=== PATIENT | male | born 1965 | race Caucasian/White ===

== ENCOUNTER 2021-01-26 21:26 | Inpatient (IN) | payer MEDICAID, MEDICARE, OTHER ==
[~2021-01-26] VITALS: Ht 185.4 cm; Wt 105.5 kg
--- NOTE | 2021-01-26 21:35 | NUR ---
PT BIBA FROM [facility] D[facility] TO A GL[facility], PT HAS AN OBVIOUS DEFORMITY TO LEFT CLAVICLE AREA. ETOH ON BOARD. UNKNOWN LOC, UNKNOWN BLOOD THINNERS, APPEARS TO HAVE HAD AN IMPACT TO FACE DUE TO EPISTAXIS. VOMITTING MONO BLOOD INTO MASK, APPEARS TO BE SMALL AMOUNTS AT THIS TIME. ALSO CO OF INTERMITTENT CP, PULSES 2+. PT REPORTS DRINKING SIGNIFICANT AMOUNTS OF ETOH AND REPORTS THAT HE DRINKS DAILY. PT NOT THE GREATEST HISTORIAN REGARDING CURRENT MEDICATIONS AND MEDICAL HISTORY. PT TO CT AT THIS TIME VIA [facility]. BED IN LOWEST, RAILS ENGAGED, CALL LIGHT ON LAP, WCTM.
[2021-01-26] MEDS ORDERED: ONDANSETRON ODT 4 MG PO ONE (22:00)
[2021-01-26] MEDS ORDERED: ONDANSETRON ODT 4 MG ONE (22:12)
[2021-01-26 22:29] LABS: BASOPHILS % (AUTO) 1 % (0-1); EOSINOPHILS % (AUTO) 1 % (1-7); LYMPHOCYTES % (AUTO) 23 % (22-44); MEAN CORPUSCULAR HEMOGLOBIN 31.5 pg (27.5-34.5); MEAN CORPUSCULAR HGB CONC 34.1 g/dL (33.2-36.2); MEAN PLATELET VOLUME 9.3 fL (7.4-10.4); MONOCYTES % (AUTO) 7 % (2-9); NEUTROPHILS % (AUTO) 69 % (42-75); PLATELET COUNT 185 x10^3/uL (130-400); RED BLOOD COUNT 3.65 x10^6/uL (4.38-5.82); RED CELL DISTRIBUTION WIDTH 13.4 % (9.4-14.8)
--- NOTE | 2021-01-26 22:33 | NUR ---
MARK BELL (BROTHER): [phone]
[2021-01-26 22:39] LABS: ANION GAP 11 mmol/L (5-15); CHLORIDE 89 mmol/L (98-107); CREATININE 1.24 mg/dL (0.7-1.3)
[2021-01-26] MEDS ORDERED: PROPOFOL 10 MG/ML, 20ML ONE (23:18)
[2021-01-26] MEDS ORDERED: KETAMINE 10 MG/ML, 20ML ONE (23:19)
--- NOTE | 2021-01-26 23:24 | NUR ---
PT NAD, NO CHANGES IN CONDITION, MOVED TO LARGER ROOM FOR SHOULDER REDUCTION. REPORT TO QING MONTERO, PT CARE TRANSFERRED AT THIS TIME. PT UNABLE TO RECOLLECT DAILY MEDICATIONS STATING "I TAKE A FEW PILLS, A COUPLE ARE FOR MY DIABETES."
--- NOTE | 2021-01-26 23:25 | NUR ---
REPORT FROM BHAVANI MONTERO. THIS IS A PLEASANT 55 YO M W/ ETOH INTOXICATION, HYPONATREMIA AND LT SHOULDER DISLOCATION. PT TRANSFERED TO T3, ROOM SET UP FOR REDUCTION. PT AWAKE AND ALERT, SPEAKING W/ STAFF IN A FRIENDLY MANNER. COOPERATIVE W/ ASSESSMENT.
[2021-01-26] MEDS ORDERED: KETAMINE 10 MG/ML, 20ML IV ONE (23:30)
[2021-01-26] MEDS ORDERED: PROPOFOL 10 MG/ML, 20ML IVPush ONE (23:30)
--- NOTE | 2021-01-26 23:42 | NUR ---
2329: 25MG PROP, 25MG KETAMINE GIVEN, NADN. 2330: 15MG PROP, 15MG KETAMINE GIVEN, NADN. 2335: 10MG PROP, 10MG KETAMINE GIVEN, NADN. 2336: 20MG PROP, 20MG KETAMINE GIVEN, NADN. DR.VAN SHEN PERFORMED REDUCTION, VERIFIED BY BEDSIDE XRAY 2342: PT AWAKE BUT DROWSY, SPEAKING W/ STAFF. HYPERTENSIVE, OTHER VS WDL. NADN.
[2021-01-26] MEDS ORDERED: NS + 20MEQ KCL 1,000 ML IV ONE (23:54)
--- NOTE | 2021-01-26 23:55 | NUR ---
PT AWAKE AND ALERT, SEPAKING IN FULL SENTENCES. RESP EVEN AND UNLABORED, NADN.
[2021-01-27] MEDS ORDERED: FOLIC ACID 5 MG/ML IM ONE
[2021-01-27] MEDS ORDERED: THIAMINE 100 MG/ML, 2ML IM ONE
[2021-01-27] MEDS ORDERED: NS + 20MEQ KCL 1,000 ML IV SCH
[2021-01-27] MEDS ORDERED: LORazepam 0.5MG TABLET PO PRN (00:30)
[2021-01-27] MEDS ORDERED: THIAMINE 200 MG in DEXTROSE 5% 50 ML IVPB ONE (00:30)
[2021-01-27] MEDS ORDERED: LORazepam 1MG TABLET PO PRN (00:30)
[2021-01-27] MEDS ORDERED: LORazepam 2 MG/ML, 1ML IV PRN ×2 (00:30)
[2021-01-27] MEDS ORDERED: MELATONIN 5 MG TABLET PO PRN (00:30)
[2021-01-27] MEDS ORDERED: LABETALOL 5MG/ML, 20ML IVPush PRN (00:30)
[2021-01-27] MEDS ORDERED: ONDANSETRON 2MG/ML, 2ML IVPush PRN (00:30)
[2021-01-27 00:35] LABS: ANION GAP 11 mmol/L (5-15); CALCIUM 7.5 mg/dL (8.5-10.1); CHLORIDE 92 mmol/L (98-107); CREATININE 1.03 mg/dL (0.7-1.3)
--- NOTE | 2021-01-27 00:54 | NUR ---
PT AWAKE AND ALERT, RESTING ON GURNEY W/ CALL LIGHT IN REACH AND SIDE RAILS UPX2. RESP EVEN AND UNLABORED, NADN. AWAITING ADMIT.
--- NOTE | 2021-01-27 01:18 | NUR ---
PT INSISTING ON STANDING AT THE BEDSIDE FOR URINE SAMPLE. PT ABLE TO STAND BUT A LITTLE WOBBLY. THIS RN STOOD BY FOR ASSISTANCE. 600ML OUTPUT. URINE COLLECTED AND SENT TO LAB. PT RETURNED TO [facility] W/O INCIDENT. RESP EVEN AND UNLABORED, SAKSHI.
[2021-01-27 01:21] LABS: MICROSCOPIC AUTO
[2021-01-27 01:26] LABS: CHLORIDE,URINE RANDOM 40 mmol/L; POTASSIUM,URINE RANDOM 11 mmol/L; SODIUM,URINE RANDOM 37 mmol/L
[2021-01-27 01:31] LABS: AMPHETAMINE SCREEN, URINE Negative (Negative); BARBITURATE SCREEN, URINE Negative (Negative); BENZODIAZEPINE SCREEN, URINE Negative (Negative); CANNABINOID SCREEN, URINE Positive (Negative); COCAINE SCREEN, URINE Negative (Negative); METHADONE SCREEN, URINE Negative (Negative); OPIATE SCREEN, URINE Negative (Negative)
--- NOTE | 2021-01-27 01:43 | NUR ---
PT TRANSFERED TO ICU W/O INCIDENT. AWAKE AND ALERT, VSS, NADN.
[2021-01-27] MEDS: ENOXAPARIN 40 MG/0.4 ML SQ SCH (01:51)
[2021-01-27] MEDS ORDERED: SODIUM CHLORIDE 0.9% 1,000 ML IV SCH (02:00)
[2021-01-27] MEDS ORDERED: MAGNESIUM SULFATE PMX 2GM/50ML 50 ML IV ONE (02:00)
[2021-01-27] MEDS: OXYcodone IR 5MG TABLET PO PRN ×4 (02:35→20:27)
[2021-01-27 02:58] LABS: ABSOLUTE RETICS # 0.049 x10^6/uL (0.5-1.5); RED BLOOD COUNT 3.68 x10^6/uL (4.38-5.82); RETICULOCYTE COUNT % 1.31 % (0.5-1.5)
[2021-01-27 04:29] LABS: BASOPHILS % (AUTO) 0 % (0-1); EOSINOPHILS % (AUTO) 1 % (1-7); LYMPHOCYTES % (AUTO) 24 % (22-44); MEAN CORPUSCULAR HEMOGLOBIN 31.5 pg (27.5-34.5); MEAN CORPUSCULAR HGB CONC 34.6 g/dL (33.2-36.2); MONOCYTES % (AUTO) 9 % (2-9); NEUTROPHILS % (AUTO) 67 % (42-75); PLATELET COUNT 182 x10^3/uL (130-400); RED BLOOD COUNT 3.51 x10^6/uL (4.38-5.82); RED CELL DISTRIBUTION WIDTH 12.9 % (9.4-14.8)
[2021-01-27 04:46] LABS: ANION GAP 10 mmol/L (5-15); CALCIUM 7.9 mg/dL (8.5-10.1); CHLORIDE 93 mmol/L (98-107)
[2021-01-27 09:40] LABS: CALCIUM 8.5 mg/dL (8.5-10.1); CHLORIDE 98 mmol/L (98-107)
[2021-01-27 09:56] LABS: CREATININE 0.87 mg/dL (0.7-1.3)
[2021-01-27 10:03] LABS: ANION GAP 9 mmol/L (5-15)
[2021-01-27] MEDS ORDERED: LORazepam 2 MG/ML, 1ML IVPush PRN (12:30)
[2021-01-27 12:39] VITALS: BP 158/84
[2021-01-27 12:52] LABS: ANION GAP 6 mmol/L (5-15); CALCIUM 8.3 mg/dL (8.5-10.1); CHLORIDE 98 mmol/L (98-107); CREATININE 0.92 mg/dL (0.7-1.3)
[2021-01-27 19:23] VITALS: BP 149/86
[2021-01-28] MEDS: OXYcodone IR 5MG TABLET PO PRN ×4 (01:30→21:01)
[2021-01-28 01:40] VITALS: BP 139/94
[2021-01-28] MEDS ORDERED: BACLOFEN 10 MG TABLET PO ONE (02:00)
[2021-01-28 06:25] LABS: ANION GAP 9 mmol/L (5-15); CALCIUM 8.5 mg/dL (8.5-10.1); CHLORIDE 94 mmol/L (98-107)
[2021-01-28 06:27] LABS: CREATININE 1.09 mg/dL (0.7-1.3)
[2021-01-28 07:03] VITALS: BP 184/96
[2021-01-28] MEDS: INSULIN LISPRO 100 UNITS/ML, PEN SQ-INSULIN SCH ×4 (08:43→23:53)
[2021-01-28] MEDS: ENOXAPARIN 40 MG/0.4 ML SQ SCH (08:43)
[2021-01-28] MEDS ORDERED: INSULIN GLARGINE 100 UNITS/ML, PEN SQ-INSULIN SCH (09:00)
[2021-01-28] MEDS ORDERED: MAGNESIUM SULFATE PMX 2GM/50ML 50 ML IV ONE (10:00)
[2021-01-28] MEDS ORDERED: ATOR40TA78 PO (11:15)
[2021-01-28] MEDS ORDERED: OMEP20CA20 PO (11:15)
[2021-01-28] MEDS ORDERED: GABA600T7 PO (11:15)
[2021-01-28] MEDS ORDERED: INSU100V8 SQ (11:15)
[2021-01-28 12:22] VITALS: BP 159/94
[2021-01-28] MEDS: GABAPENTIN 300 MG CAPSULE PO SCH (13:02)
[2021-01-28] MEDS: DIAZEPAM 2 MG TABLET PO SCH ×3 (14:15→22:19)
[2021-01-28] MEDS: SODIUM CHLORIDE 0.9% 1,000 ML IV SCH (15:25)
[2021-01-28] MEDS: BACLOFEN 10 MG TABLET PO PRN (15:53)
[2021-01-28 20:44] VITALS: BP 147/83
[2021-01-28] MEDS: ATORVASTATIN 40 MG TABLET PO SCH (21:00)
[2021-01-28] MEDS: OMEPRAZOLE 20 MG CAPSULE.DR PO SCH (21:00)
[2021-01-28] MEDS: INSULIN GLARGINE 100 UNITS/ML, PEN SQ-INSULIN SCH (23:53)
[2021-01-29] MEDS: DIAZEPAM 2 MG TABLET PO SCH ×6 (02:30→19:40)
[2021-01-29 02:34] VITALS: BP 137/88
[2021-01-29] MEDS: OXYcodone IR 5MG TABLET PO PRN ×5 (05:18→22:01)
[2021-01-29 07:02] VITALS: BP 129/84
[2021-01-29] MEDS: GABAPENTIN 300 MG CAPSULE PO SCH ×2 (07:53→19:40)
[2021-01-29] MEDS: OMEPRAZOLE 20 MG CAPSULE.DR PO SCH ×2 (07:53→19:40)
[2021-01-29] MEDS: INSULIN GLARGINE 100 UNITS/ML, PEN SQ-INSULIN SCH ×3 (07:59→22:02)
[2021-01-29] MEDS: INSULIN LISPRO 100 UNITS/ML, PEN SQ-INSULIN SCH ×4 (08:00→22:01)
[2021-01-29] MEDS: POLYETHYLENE GLYCOL 17 GM PACKET PO PRN (08:11)
[2021-01-29] MEDS: ENOXAPARIN 40 MG/0.4 ML SQ SCH (08:11)
[2021-01-29 08:59] LABS: ANION GAP 9 mmol/L (5-15); CALCIUM 8.5 mg/dL (8.5-10.1); CHLORIDE 93 mmol/L (98-107)
[2021-01-29 09:03] LABS: CREATININE 1.18 mg/dL (0.7-1.3)
[2021-01-29 12:16] VITALS: BP 151/81
[2021-01-29] MEDS: SODIUM CHLORIDE 0.9% 1,000 ML IV SCH (12:42)
[2021-01-29] MEDS: BACLOFEN 10 MG TABLET PO PRN ×2 (16:14→16:25)
[2021-01-29] MEDS ORDERED: GABAPENTIN 300 MG CAPSULE PO PRN (16:30)
[2021-01-29] MEDS: ATORVASTATIN 40 MG TABLET PO SCH (19:40)
[2021-01-29 20:28] VITALS: BP 122/79
[2021-01-30] MEDS: DIAZEPAM 2 MG TABLET PO SCH ×4 (01:33→20:10)
[2021-01-30 01:52] VITALS: BP 133/79
[2021-01-30] MEDS: OXYcodone IR 5MG TABLET PO PRN ×3 (04:07→17:10)
[2021-01-30 05:55] LABS: BASOPHILS % (AUTO) 1 % (0-1); EOSINOPHILS % (AUTO) 0 % (1-7); LYMPHOCYTES % (AUTO) 18 % (22-44); MEAN CORPUSCULAR HEMOGLOBIN 31.8 pg (27.5-34.5); MEAN CORPUSCULAR HGB CONC 34.6 g/dL (33.2-36.2); MEAN PLATELET VOLUME 9.1 fL (7.4-10.4); MONOCYTES % (AUTO) 12 % (2-9); NEUTROPHILS % (AUTO) 69 % (42-75); PLATELET COUNT 196 x10^3/uL (130-400); RED BLOOD COUNT 2.86 x10^6/uL (4.38-5.82); RED CELL DISTRIBUTION WIDTH 13.1 % (9.4-14.8)
[2021-01-30 05:58] LABS: ALBUMIN 2.1 g/dL (3.4-5.0); ANION GAP 7 mmol/L (5-15); CHLORIDE 92 mmol/L (98-107)
[2021-01-30 06:02] LABS: ALANINE AMINOTRANSFERASE 65 U/L (12-78); ALKALINE PHOSPHATASE 102 U/L (45-117); BILIRUBIN,TOTAL 1.9 mg/dL (0.2-1.0); CREATININE 1.27 mg/dL (0.7-1.3)
[2021-01-30] MEDS: ENOXAPARIN 40 MG/0.4 ML SQ SCH (08:07)
[2021-01-30] MEDS: INSULIN LISPRO 100 UNITS/ML, PEN SQ-INSULIN SCH ×4 (08:07→20:11)
[2021-01-30] MEDS: OMEPRAZOLE 20 MG CAPSULE.DR PO SCH ×2 (08:08→20:10)
[2021-01-30] MEDS: INSULIN GLARGINE 100 UNITS/ML, PEN SQ-INSULIN SCH ×2 (08:08→20:11)
[2021-01-30] MEDS: GABAPENTIN 300 MG CAPSULE PO SCH ×3 (08:09→20:10)
[2021-01-30 08:29] VITALS: BP 136/86
[2021-01-30] MEDS: BACLOFEN 10 MG TABLET PO PRN (11:02)
[2021-01-30] MEDS: POLYETHYLENE GLYCOL 17 GM PACKET PO PRN (11:03)
[2021-01-30] MEDS: SODIUM CHLORIDE 0.9% 1,000 ML IV SCH (12:37)
[2021-01-30 13:44] VITALS: BP 108/70
[2021-01-30 18:35] VITALS: BP 119/68
[2021-01-30] MEDS: ATORVASTATIN 40 MG TABLET PO SCH (20:10)
[2021-01-31] MEDS: OXYcodone IR 5MG TABLET PO PRN ×3 (00:25→22:40)
[2021-01-31 01:13] VITALS: BP 121/69
[2021-01-31] MEDS: SODIUM CHLORIDE 0.9% 1,000 ML IV SCH ×2 (02:15→22:41)
[2021-01-31] MEDS: DIAZEPAM 2 MG TABLET PO SCH ×4 (02:15→20:24)
[2021-01-31 06:53] LABS: BASOPHILS % (AUTO) 0 % (0-1); EOSINOPHILS % (AUTO) 1 % (1-7); LYMPHOCYTES % (AUTO) 16 % (22-44); MEAN CORPUSCULAR HEMOGLOBIN 31.4 pg (27.5-34.5); MEAN PLATELET VOLUME 8.9 fL (7.4-10.4); MONOCYTES % (AUTO) 14 % (2-9); NEUTROPHILS % (AUTO) 69 % (42-75); PLATELET COUNT 217 x10^3/uL (130-400); RED BLOOD COUNT 2.82 x10^6/uL (4.38-5.82); RED CELL DISTRIBUTION WIDTH 13.1 % (9.4-14.8)
[2021-01-31 06:56] LABS: ANION GAP 5 mmol/L (5-15); CALCIUM 7.9 mg/dL (8.5-10.1); CHLORIDE 93 mmol/L (98-107)
[2021-01-31 06:57] LABS: CREATININE 1.11 mg/dL (0.7-1.3)
[2021-01-31 07:25] VITALS: BP 111/67
[2021-01-31] MEDS: GABAPENTIN 300 MG CAPSULE PO SCH ×3 (07:27→20:24)
[2021-01-31] MEDS: OMEPRAZOLE 20 MG CAPSULE.DR PO SCH ×2 (07:27→20:24)
[2021-01-31] MEDS: ENOXAPARIN 40 MG/0.4 ML SQ SCH (07:28)
[2021-01-31] MEDS: INSULIN LISPRO 100 UNITS/ML, PEN SQ-INSULIN SCH ×4 (07:29→20:24)
[2021-01-31] MEDS: INSULIN GLARGINE 100 UNITS/ML, PEN SQ-INSULIN SCH ×2 (07:31→20:24)
[2021-01-31] MEDS ORDERED: SODIUM PHOSPHATE 10 MMOL in SODIUM CHLORIDE 0.9% 500 ML IV ONE (08:00)
[2021-01-31] MEDS ORDERED: INSULIN GLARGINE 100 UNITS/ML, PEN SQ-INSULIN SCH (09:00)
[2021-01-31] MEDS ORDERED: INSULIN GLARGINE 100 UNITS/ML, PEN SQ-INSULIN ONE (09:00)
[2021-01-31] MEDS ORDERED: morphine SULFATE 10 MG/ML, 1ML IVPush PRN (10:00)
[2021-01-31] MEDS ORDERED: BISACODYL 10 MG SUPP PR PRN (11:00)
[2021-01-31] MEDS ORDERED: GADOTERATE 10 MMOL/20ML SYR ONE (12:54)
[2021-01-31 13:33] VITALS: BP 133/80
[2021-01-31] MEDS: POLYETHYLENE GLYCOL 17 GM PACKET PO PRN (14:17)
[2021-01-31] MEDS: ATORVASTATIN 40 MG TABLET PO SCH (20:24)
[2021-01-31 20:25] VITALS: BP 148/73
[2021-02-01 01:47] VITALS: BP 151/82
[2021-02-01] MEDS: DIAZEPAM 2 MG TABLET PO SCH ×4 (02:03→20:21)
[2021-02-01] MEDS: OXYcodone IR 5MG TABLET PO PRN ×3 (04:14→22:00)
[2021-02-01 06:50] VITALS: BP 127/77
[2021-02-01] MEDS: INSULIN LISPRO 100 UNITS/ML, PEN SQ-INSULIN SCH ×4 (07:46→20:21)
[2021-02-01] MEDS: ENOXAPARIN 40 MG/0.4 ML SQ SCH (07:46)
[2021-02-01] MEDS: INSULIN GLARGINE 100 UNITS/ML, PEN SQ-INSULIN SCH ×2 (07:47→20:22)
[2021-02-01] MEDS: OMEPRAZOLE 20 MG CAPSULE.DR PO SCH ×2 (07:47→20:21)
[2021-02-01] MEDS: GABAPENTIN 300 MG CAPSULE PO SCH ×3 (07:47→20:21)
[2021-02-01 09:34] LABS: ANION GAP 5 mmol/L (5-15); CALCIUM 8.3 mg/dL (8.5-10.1); CHLORIDE 98 mmol/L (98-107)
[2021-02-01 09:36] LABS: CREATININE 0.94 mg/dL (0.7-1.3)
[2021-02-01] MEDS: SODIUM CHLORIDE 0.9% 1,000 ML IV SCH (13:07)
[2021-02-01 13:50] VITALS: BP 127/75
[2021-02-01] MEDS: ATORVASTATIN 40 MG TABLET PO SCH (20:21)
[2021-02-01 20:50] VITALS: BP 131/77
[2021-02-02 00:35] VITALS: BP 142/83
[2021-02-02] MEDS: SODIUM CHLORIDE 0.9% 1,000 ML IV SCH ×2 (01:40→15:20)
[2021-02-02] MEDS: OXYcodone IR 5MG TABLET PO PRN (03:51)
[2021-02-02 06:43] VITALS: BP 152/78
[2021-02-02] MEDS: INSULIN LISPRO 100 UNITS/ML, PEN SQ-INSULIN SCH ×4 (07:39→20:13)
[2021-02-02 07:42] LABS: BASOPHILS % (AUTO) 1 % (0-1); EOSINOPHILS % (AUTO) 3 % (1-7); LYMPHOCYTES % (AUTO) 20 % (22-44); MEAN CORPUSCULAR HEMOGLOBIN 31.2 pg (27.5-34.5); MEAN CORPUSCULAR HGB CONC 34.2 g/dL (33.2-36.2); MEAN PLATELET VOLUME 8.1 fL (7.4-10.4); MONOCYTES % (AUTO) 15 % (2-9); NEUTROPHILS % (AUTO) 61 % (42-75); PLATELET COUNT 275 x10^3/uL (130-400); RED BLOOD COUNT 2.82 x10^6/uL (4.38-5.82); RED CELL DISTRIBUTION WIDTH 13.4 % (9.4-14.8)
[2021-02-02 07:53] LABS: ANION GAP 6 mmol/L (5-15); CALCIUM 8.1 mg/dL (8.5-10.1); CHLORIDE 96 mmol/L (98-107)
[2021-02-02 07:54] LABS: CREATININE 0.89 mg/dL (0.7-1.3)
[2021-02-02] MEDS: INSULIN GLARGINE 100 UNITS/ML, PEN SQ-INSULIN SCH ×2 (09:07→20:19)
[2021-02-02] MEDS: ENOXAPARIN 40 MG/0.4 ML SQ SCH (09:07)
[2021-02-02] MEDS: DIAZEPAM 2 MG TABLET PO SCH ×3 (09:08→20:10)
[2021-02-02] MEDS: GABAPENTIN 300 MG CAPSULE PO SCH ×3 (09:08→20:10)
[2021-02-02] MEDS: OMEPRAZOLE 20 MG CAPSULE.DR PO SCH ×2 (09:08→20:10)
[2021-02-02] MEDS: K-PHOS NEUTRAL 250MG TAB PO SCH ×2 (12:31→20:10)
[2021-02-02 14:54] VITALS: BP 145/85
[2021-02-02 19:04] VITALS: BP 121/76
[2021-02-02] MEDS: ATORVASTATIN 40 MG TABLET PO SCH (20:10)
[2021-02-03 00:19] VITALS: BP 124/75
[2021-02-03] MEDS: SODIUM CHLORIDE 0.9% 1,000 ML IV SCH (05:00)
[2021-02-03] MEDS ORDERED: MAGNESIUM SULFATE 3 GM in SODIUM CHLORIDE 0.9% 100 ML IV ONE (06:30)
[2021-02-03] MEDS: INSULIN LISPRO 100 UNITS/ML, PEN SQ-INSULIN SCH ×4 (07:00→22:29)
[2021-02-03 07:58] VITALS: BP 159/84
[2021-02-03 08:42] LABS: BASOPHILS % (AUTO) 1 % (0-1); EOSINOPHILS % (AUTO) 3 % (1-7); LYMPHOCYTES % (AUTO) 25 % (22-44); MEAN CORPUSCULAR HEMOGLOBIN 31.3 pg (27.5-34.5); MEAN CORPUSCULAR HGB CONC 34.5 g/dL (33.2-36.2); MEAN PLATELET VOLUME 7.8 fL (7.4-10.4); MONOCYTES % (AUTO) 16 % (2-9); NEUTROPHILS % (AUTO) 56 % (42-75); PLATELET COUNT 323 x10^3/uL (130-400); RED BLOOD COUNT 2.83 x10^6/uL (4.38-5.82); RED CELL DISTRIBUTION WIDTH 13.4 % (9.4-14.8)
[2021-02-03 08:54] LABS: ALBUMIN 1.6 g/dL (3.4-5.0); ANION GAP 7 mmol/L (5-15); CALCIUM 8.5 mg/dL (8.5-10.1); CHLORIDE 104 mmol/L (98-107)
[2021-02-03] MEDS: OMEPRAZOLE 20 MG CAPSULE.DR PO SCH ×2 (09:30→22:27)
[2021-02-03] MEDS: GABAPENTIN 300 MG CAPSULE PO SCH ×3 (09:30→22:26)
[2021-02-03] MEDS: K-PHOS NEUTRAL 250MG TAB PO SCH ×2 (09:30→22:27)
[2021-02-03] MEDS: DIAZEPAM 2 MG TABLET PO SCH ×3 (09:30→22:27)
[2021-02-03] MEDS: ENOXAPARIN 40 MG/0.4 ML SQ SCH (09:31)
[2021-02-03] MEDS: INSULIN GLARGINE 100 UNITS/ML, PEN SQ-INSULIN SCH ×2 (09:32→22:30)
[2021-02-03 13:58] VITALS: BP 162/89
[2021-02-03 18:30] VITALS: BP 167/88
[2021-02-03] MEDS: ATORVASTATIN 40 MG TABLET PO SCH (22:26)
[2021-02-04 00:19] VITALS: BP 145/79
[2021-02-04] MEDS: SODIUM CHLORIDE 0.9% 1,000 ML IV SCH (03:44)
[2021-02-04] MEDS: INSULIN LISPRO 100 UNITS/ML, PEN SQ-INSULIN SCH ×3 (07:00→16:05)
[2021-02-04 08:55] VITALS: BP 156/75
[2021-02-04] MEDS: INSULIN GLARGINE 100 UNITS/ML, PEN SQ-INSULIN SCH (09:00)
[2021-02-04] MEDS: ENOXAPARIN 40 MG/0.4 ML SQ SCH (09:00)
[2021-02-04] MEDS: GABAPENTIN 300 MG CAPSULE PO SCH ×2 (09:35→15:56)
[2021-02-04] MEDS: DIAZEPAM 2 MG TABLET PO SCH ×2 (09:35→15:56)
[2021-02-04] MEDS: OMEPRAZOLE 20 MG CAPSULE.DR PO SCH (09:52)
[2021-02-04] MEDS: K-PHOS NEUTRAL 250MG TAB PO SCH (09:52)
[2021-02-04] MEDS ORDERED: INSULIN GLARGINE 100 UNITS/ML, PEN SQ-INSULIN ONE (10:00)
[2021-02-04] MEDS: OXYcodone IR 5MG TABLET PO PRN (11:46)
[2021-02-04 15:30] VITALS: BP 143/78
== END 2021-02-04 16:17 | DRG 562 ==
LOC: ED 01-27 00:25 → EDIP 01-27 00:40 → CSU 01-27 01:26 → 5SO 01-27 11:36 → 3N 01-28 18:30
PROVIDERS: ADMIT Internal Medicine; ATTEND Internal Medicine
PROC: 0RSKXZZ Reposition Left Shoulder Joint, External Approach (ICD-10-PCS; principal; 2021-01-27)
DX: S43.015A Anterior dislocation of left humerus, initial encounter (principal); G92 Toxic encephalopathy; N17.9 Acute kidney failure, unspecified; E87.1 Hypo-osmolality and hyponatremia; F10.229 Alcohol dependence with intoxication, unspecified; E86.0 Dehydration; W18.30XA Fall on same level, unspecified, initial encounter; Y93.9 Activity, unspecified; Y92.9 Unspecified place or not applicable; D64.9 Anemia, unspecified; E11.40 Type 2 diabetes mellitus with diabetic neuropathy, unspecified; E11.65 Type 2 diabetes mellitus with hyperglycemia; E66.01 Morbid (severe) obesity due to excess calories; E78.5 Hyperlipidemia, unspecified; E83.42 Hypomagnesemia; F19.10 Other psychoactive substance abuse, uncomplicated; K05.6 Periodontal disease, unspecified; K70.9 Alcoholic liver disease, unspecified; M51.34 Other intervertebral disc degeneration, thoracic region; S01.21XA Laceration without foreign body of nose, initial encounter; S02.2XXA Fracture of nasal bones, initial encounter for closed fracture; Z68.32 Body mass index [BMI] 32.0-32.9, adult; Z79.4 Long term (current) use of insulin; Z89.429 Acquired absence of other toe(s), unspecified side
CPT/HCPCS: 23650; 36415; 70450; 70486; 72157; 80048; 80053; 80069; 80307; 80320; 81001; 82436; 82570; 82607; 82728; 82962; 83036; 83540; 83550; 83735; 84100; 84133; 84295; 84300; 85025; 85045; 87081; 93005; 99152; 99291; G0378; J1650; J3411; J3475; J3480; Q0162; A9575; G0480; J1815; J2060; J2270; J7030; J7040